=== PATIENT | male | born 1960 | race Caucasian/White ===

== ENCOUNTER 2016-12-22 17:58 | Inpatient (IN) | payer BC ==
[2016-12-22 19:35] VITALS: BMI 32.8
--- NOTE | 2016-12-22 20:23 | HP ---
CIWA Score - CIWA Score Nausea/Vomitin-Mild Nausea/No Vomiting Muscle Tremors: 4-Moderate,w/Arms Extend Anxiety: 4-Mod. Anxious/Guarded Agitation: 4-Moderately Restless Paroxysmal Sweats: 1-Minimal Palms Moist Orientation: 1-Uncertain about Date Tacttile Disturbances: 0-None Auditory Disturbances: 0-None Visual Disturbances: 0-None Headache: 0-None Present CIWA-Ar Total Score: 15 Admission ROS BHS - HPI Chief Complaint: withdrawal sx Allergies/Adverse Reactions: Allergies Allergy/AdvReac Type Severity Reaction Status Date / Time No Known Allergies Allergy Verified 11/18/15 18:11 History of Present Illness: 56 years old male with long history of alcohol cocaine nicotine dependence has gerd and depression is [facility] Exam Limitations: No Limitations - Ebola screening Have you traveled outside of the country in the last 21 days: No Have you had contact with anyone from an Ebola affected area: No Have you been sick,other than usual withdrawal symptoms: No Do you have a fever: No - Review of Systems Constitutional: Changes in sleep, Weight Stable EENT: reports: No Symptoms Reported, Dental Problems (denture upper) Respiratory: reports: SOB with Exertion, Productive cough (white) Cardiac: reports: No Symptoms Reported GI: reports: Nausea, Poor Fluid Intake, Indigestion, Abdominal cramping : reports: No Symptoms Reported Musculoskeletal: reports: Back Pain, Joint Pain (arthritis both knees and wrists ), Joint Swelling (both ankles = subsided after elevation), Muscle Pain, Neck Pain Integumentary: reports: No Symptoms Reported Neuro: reports: Tremors Endocrine: reports: No Symptoms Reported Hematology: reports: No Symptoms Reported Psychiatric: reports: Judgement Intact, Anxious, Depressed Other Systems: Reviewed and Negative Patient History - Patient Medical History Hx Anemia: No Hx Asthma: No Hx Chronic Obstructive Pulmonary Disease (COPD): No Hx Cancer: No Hx Cardiac Disorders: No Hx Congestive Heart Failure: No Hx Hypertension: No Hx Hypercholesterolemia: No Hx Pacemaker: No HX Cerebrovascular Accident: No Hx Seizures: No Hx Dementia: No Hx Diabetes: No Hx Gastrointestinal Disorders: Yes (GERD) Hx Liver Disease: No Hx Genitourinary Disorders: No Hx Sexually Transmitted Disorders: No Hx Renal Disease (ESRD): No Hx Thyroid Disease: No Hx Human Immunodeficiency Virus (HIV): No Hx Hepatitis C: Yes (treated) Hx Depression: Yes (ANXIETY) Hx Suicide Attempt: No Hx Bipolar Disorder: No Hx Schizophrenia: No - Patient Surgical History Past Surgical History: Yes Hx Neurologic Surgery: No Hx Cataract Extraction: No Hx Cardiac Surgery: No Hx Lung Surgery: No Hx Breast Surgery: No Hx Breast Biopsy: No Hx Abdominal Surgery: No Hx Appendectomy: No Hx Cholecystectomy: No Hx Genitourinary Surgery: No Hx Orthopedic Surgery: No Other Surgical History: EYE SX/LIPOMA REMOVED 2010/RETURN BACK Anesthesia Reaction: No - PPD History Previous Implant?: Yes Documented Results: Negative w/proof Implanted On Prior [facility] Admission?: Yes Date: 11/20/15 PPD to be Administered?: Yes - Smoking Cessation Smoking history: Current every day smoker Have you smoked in the past 12 months: Yes Aproximately how many cigarettes per day: 10 Hx Chewing Tobacco Use: No Initiated information on smoking cessation: Yes 'Breaking Loose' booklet given: 12/22/16 - Substance & Tx. History Hx Alcohol Use: Yes Hx Substance Use: Yes Substance Use Type: Alcohol, Cocaine Hx Substance Use Treatment: Yes (11/17-11/21/16 [facility] - Substances Abused Alcohol Route: Oral Frequency: Daily Amount used: 3 pints volka Age of first use: 16 Date of Last Use: 12/22/16 Family Disease History - Family Disease History Family Disease History: Diabetes: Grandparent, Other: Father (NEVER MEET), Mother () Admission Physical Exam S - Vital Signs Vital Signs: Vital Signs - 24 hr 12/22/16 19:31 Temperature 96.9 F L Pulse Rate 90 Respiratory 18 Rate Blood Pressure 117/77 - Physical General Appearance: Yes: Appropriately Dressed, Mild Distress, Alcohol on Breath , Obese, Tremorous, Irritable, Sweating, Anxious HEENTM: Yes: Hearing grossly Normal, Normal ENT Inspection, Normocephalic, Normal Voice Respiratory: Yes: Chest Non-Tender, Lungs Clear, Normal Breath Sounds, No Respiratory Distress, No Accessory Muscle Use Neck: Yes: Supple, Trachea in good position Breast: Yes: Breasts Symetrical Cardiology: Yes: Regular Rhythm, S1, S2, Tachycardia Abdominal: Yes: Normal Bowel Sounds, Non Tender, Soft Genitourinary: Yes: Within Normal Limits Back: Yes: Normal Inspection Musculoskeletal: Yes: full range of Motion, Gait Steady, Back pain, Muscle Pain (knees arthritis) Extremities: Yes: Normal Range of Motion, Non-Tender, Tremors, Swelling (both ankles) Neurological: Yes: Alert, Motor Strength 5/5, Normal Response, Depressed Affect Integumentary: Yes: Warm Lymphatic: Yes: Within Normal Limits - Diagnostic (1) Alcohol dependence with withdrawal Current Visit: Yes Status: Acute Qualifiers: Complication of substance-induced condition: uncomplicated Qualified Code(s): F10.230 - Alcohol dependence with withdrawal, uncomplicated (2) Arthritis Current Visit: Yes Status: Chronic (3) GERD (gastroesophageal reflux disease) Current Visit: Yes Status: Chronic Qualifiers: Esophagitis presence: without esophagitis Qualified Code(s): K21.9 - Gastro-esophageal reflux disease without esophagitis (4) Nicotine dependence Current Visit: Yes Status: Chronic Qualifiers: Nicotine product type: cigarettes Substance use status: in withdrawal Qualified Code(s): F17.213 - Nicotine dependence, cigarettes, with withdrawal (5) Anxiety and depression Current Visit: Yes Status: Suspected (6) Hepatitis C Current Visit: Yes Status: Resolved Qualifiers: Viral hepatitis chronicity: chronic Hepatic coma status: without hepatic coma Qualified Code(s): B18.2 - Chronic viral hepatitis C Cleared for Admission [facility] - Detox or Rehab [facility] Level of Care: Medically Managed Detox Regimen/Protocol: Librium [facility] Breath Alcohol Content Breath Alcohol Content: 0.138 Urine Drug Screen - Results Drug Screen Negative: No Urine Drug Screen Results: OLLIE-Cocaine
[2016-12-22] MEDS ORDERED: MAGNESIUM HYDROX 2400MG/30ML ORAL SUSPENSION 30 ML CUP PO PRN (20:31)
[2016-12-22] MEDS ORDERED: MAG HYDROX/AL HYDROX/SIMETH 30 ML UNIT-DOSE CUP PO PRN (20:31)
[2016-12-22] MEDS ORDERED: chlordiazePOXIDE HCL 25 MG CAPSULE PO ONE (20:31)
[2016-12-22] MEDS ORDERED: hydrOXYzine PAMOATE 50 MG CAPSULE (FP) PO PRN (20:31)
[2016-12-22] MEDS ORDERED: LOPERAMIDE HCL 2 MG CAPSULE PO PRN (20:31)
[2016-12-22] MEDS ORDERED: guaiFENesin/D-METHORPHAN HB 10 ML UNIT-DOSE CUPS PO PRN (20:31)
[2016-12-22] MEDS ORDERED: chlordiazePOXIDE HCL 25 MG CAPSULE PO PRN (20:31)
[2016-12-22] MEDS ORDERED: diphenhydrAMINE HCL 50 MG CAPSULE PO PRN (20:31)
[2016-12-22] MEDS ORDERED: MENTHOL/PHENOL 1 EACH UD MM PRN (20:31)
[2016-12-22] MEDS ORDERED: MAGNESIUM CITRATE 300 ML BOTTLE PO PRN (20:31)
[2016-12-22] MEDS ORDERED: P-EPHED 60MG/TRIPROLIDI 2.5MG TABLET PO PRN (20:31)
[2016-12-22] MEDS ORDERED: NICOTINE POLACRILEX 2 MG GUM BC PRN (20:31)
[2016-12-22] MEDS ORDERED: ALBUTEROL SO4 6.7 GM HFA INHALER IH PRN (20:38)
[2016-12-22] MEDS ORDERED: ALBUTEROL SO4 2.5/IPRATROPIUM 0.5 INH SOL 3 ML VIAL.NEB. NEB PRN (20:39)
[2016-12-22] MEDS: RANITIDINE HCL 150 MG TABLET (FP) PO SCH (21:35)
[2016-12-22] MEDS: THIAMINE HCL 100 MG TABLET (FP) PO SCH (21:35)
[2016-12-22] MEDS: NAPROXEN 500 MG TABLET (FP) PO PRN (22:24)
[2016-12-22] MEDS: BUDESONIDE/FORMETEROL FUMARATE 80/4.5 mcg INHALER IH SCH (22:33)
[2016-12-22] MEDS ORDERED: CYCLOBENZAPRINE HCL 10 MG TABLET (FP) PO ONE (23:27)
[2016-12-22] MEDS: chlordiazePOXIDE HCL 25 MG CAPSULE PO SCH (23:39)
[2016-12-23] MEDS: ACETAMINOPHEN 325 MG TABLET (FP) PO PRN (01:32)
[2016-12-23] MEDS: CYCLOBENZAPRINE HCL 10 MG TABLET (FP) PO PRN (01:46)
[2016-12-23] MEDS: chlordiazePOXIDE HCL 25 MG CAPSULE PO SCH ×4 (06:11→22:59)
--- NOTE | 2016-12-23 08:49 | CONSULT ---
[facility] Psychiatric Consult - Data Date of interview: 12/23/16 Admission source: [facility] Identifying data: Lincoln is 56 years old male with psychiatric hospitalization history, iontoxicated with: Alcohol and Nicotine Substance Abuse History: - Smoking Cessation. Smoking history: Current every day smoker. Have you smoked in the past 12 months: Yes. Aproximately how many cigarettes per day: 10. Hx Chewing Tobacco Use: No. Initiated information on smoking cessation: Yes. 'Breaking Loose' booklet given: 12/22/16. - Substance & Tx. History. Hx Alcohol Use: Yes. Hx Substance Use: Yes. Substance Use Type : Alcohol, Cocaine. Hx Substance Use Treatment: Yes (11/17-11/21/16 [facility]). - Substances Abused. Alcohol. Route: Oral. Frequency: Daily. Amount used: 3 pints volka. Age of first use: 16. Date of Last Use: 12/22/16 Medical History: Patint reprots history of COPD, Lower Extremities Edema, HepC+, Psychiatric History: Patient reports history of anxioety amd depression with recent psychiatric admission for safety on 2015 at [facility], reports taking prior to admission: Lamictal 25mg poqd. Gabapentine 400mg po bid. Vistaril; 50mg po qhs Physical/Sexual Abuse/Trauma History: Denies Additional Comment: Lamictal 25mg poqd. Gabapentine 400mg po bid. Vistaril; 50mg po qhs Mental Status Exam - Mental Status Exam Alert and Oriented to: Person Patient Appearance: Unkempt Patient Behavior: Cooperative Speech Pattern: Appropriate Voice Loudness: Mildly Soft/Quiet Thought Process: Goal Oriented Thought Disorder: Being Controlled Hallucinations: Denies Suicidal Ideation: Denies Insight/Judgement: Fair Sleep: Difficulty falling asleep Appetite: Weight gain Muscle strength/Tone: Mild Hypotonicity Gait/Station: Shuffling Additional Comments: Lamictal 25mg poqd. Gabapentine 400mg po bid. Vistaril; 50mg po qhs Psychiatric Findings - Problem List ([place] 1, 2,3) (1) Alcohol dependence with withdrawal Current Visit: Yes Status: Acute Qualifiers: Complication of substance-induced condition: uncomplicated Qualified Code(s): F10.230 - Alcohol dependence with withdrawal, uncomplicated (2) COPD (chronic obstructive pulmonary disease) Current Visit: Yes Status: Acute (3) Nicotine dependence Current Visit: Yes Status: Chronic Qualifiers: Nicotine product type: cigarettes Substance use status: in withdrawal Qualified Code(s): F17.213 - Nicotine dependence, cigarettes, with withdrawal (4) Anxiety and depression Current Visit: Yes Status: Suspected (5) Drug-induced mood disorder Current Visit: Yes Status: Acute - Initial Treatment Plan Initial Treatment Plan: Lamictal 25mg poqd. Gabapentine 400mg po bid. Vistaril ; 50mg po qhs
[2016-12-23 10:00] LABS: MCH 32.5 pg (25.7-33.7); MCHC 34.3 g/dl (32.0-35.9); MEAN CELL VOLUME 94.8 fl (80-96); PLATELET COUNT 285 K/MM3 (134-434); RDW 13.2 % (11.9-15.9); WHITE BLOOD COUNT 8.4 K/mm3 (4.0-10.0)
--- NOTE | 2016-12-23 10:04 | PN ---
BHS CIWA - CIWA Score Nausea/Vomitin Muscle Tremors: 4-Moderate,w/Arms Extend Anxiety: 4-Mod. Anxious/Guarded Agitation: 4-Moderately Restless Paroxysmal Sweats: 3 Orientation: 0-Oriented Tacttile Disturbances: 1-Very Mild Itch/Numbness Auditory Disturbances: 0-None Visual Disturbances: 0-None Headache: 1-Very Mild CIWA-Ar Total Score: 20 BHS Progress Note (SOAP) Subjective: nausea, sweats, interrupted sleep, anxiety, tremors Objective: 12/23/16 10:04 Vital Signs - 8 hr 12/23/16 12/23/16 03:30 05:51 Temperature 97.9 F Pulse Rate 78 Respiratory 18 18 Rate Blood Pressure 138/72 labs still pending Assessment: 12/23/16 10:04 withdrawal sx Plan: cont detox, check labs
--- NOTE | 2016-12-23 10:45 | EKG ---
Test Reason : Blood Pressure : / mmHG Vent. Rate : 084 BPM Atrial Rate : 084 BPM P-R Int : 142 ms QRS Dur : 098 ms QT Int : 408 ms P-R-T Axes : 071 064 057 degrees QTc Int : 482 ms NORMAL SINUS RHYTHM PROLONGED QT ABNORMAL ECG NO PREVIOUS ECGS AVAILABLE Confirmed by RAMIREZ FOX MD ([id number]) on 12/23/2016 10:44:57 AM Referred By: Confirmed By:RAMIREZ FOX MD
[2016-12-23] MEDS: PRENATAL VITAMINS W/ FOLIC ACID TABLET (FP) PO SCH (10:53)
[2016-12-23] MEDS: ONDANSETRON *ODT* 4 MG TABLET SL PRN (10:53)
[2016-12-23] MEDS: RANITIDINE HCL 150 MG TABLET (FP) PO SCH ×2 (10:54→22:59)
[2016-12-23] MEDS: SERTRALINE HCL 50 MG TABLET (FP) PO SCH (10:54)
[2016-12-23] MEDS: NAPROXEN 500 MG TABLET (FP) PO PRN (10:54)
[2016-12-23] MEDS: lamoTRIgine 25 MG TABLET PO SCH (10:57)
[2016-12-23] MEDS: GABAPENTIN 400 MG CAPSULE (FP) PO SCH ×2 (10:57→22:59)
[2016-12-23 11:02] LABS: ALK PHOS 104 U/L (45-117); ANION GAP 10 (8-16); BILIRUBIN,TOTAL 0.7 mg/dL (0.2-1.0); CO2 28 mmol/L (21-32); CREATININE 0.7 mg/dL (0.7-1.3); GLUCOSE,RANDOM 100 mg/dL (74-106); SGOT/AST 35 U/L (15-37); SGPT/ALT 45 U/L (12-78); TOT PROT 6.3 g/dl (6.4-8.2)
[2016-12-23] MEDS: NICOTINE 14 MG/24 HOURS TOPICAL PATCH TD SCH (13:57)
[2016-12-23] MEDS: BUDESONIDE/FORMETEROL FUMARATE 80/4.5 mcg INHALER IH SCH ×2 (13:57→23:06)
[2016-12-23] MEDS: THIAMINE HCL 100 MG TABLET (FP) PO SCH (23:00)
[2016-12-23] MEDS: hydrOXYzine PAMOATE 50 MG CAPSULE (FP) PO SCH (23:08)
[2016-12-24] MEDS: chlordiazePOXIDE HCL 25 MG CAPSULE PO SCH ×3 (05:49→18:20)
[2016-12-24] MEDS: CYCLOBENZAPRINE HCL 10 MG TABLET (FP) PO PRN ×3 (05:49→22:27)
[2016-12-24] MEDS: ACETAMINOPHEN 325 MG TABLET (FP) PO PRN (05:50)
[2016-12-24] MEDS ORDERED: FUROSEMIDE 40 MG TABLET (FP) PO ONE (12:30)
--- NOTE | 2016-12-24 12:37 | PN ---
S CIWA - CIWA Score Nausea/Vomitin-No Nausea/No Vomiting Muscle Tremors: 4-Moderate,w/Arms Extend Anxiety: 4-Mod. Anxious/Guarded Agitation: 4-Moderately Restless Paroxysmal Sweats: 3 Orientation: 0-Oriented Tacttile Disturbances: 0-None Auditory Disturbances: 0-None Visual Disturbances: 0-None Headache: 0-None Present CIWA-Ar Total Score: 15 BHS Progress Note (SOAP) Subjective: agitation anxiety sweats shakes swollen ankles interrupted sleep Objective: 12/24/16 12:36 Vital Signs Temperature 97.7 F 12/24/16 10:01 Pulse Rate 69 12/24/16 10:01 Respiratory Rate 18 12/24/16 10:01 Blood Pressure 123/60 12/24/16 10:01 O2 Sat by Pulse Oximetry (%) Laboratory Tests 12/23/16 12/23/16 12/23/16 07:00 07:00 07:00 WBC 8.4 RBC 4.37 Hgb 14.2 Hct 41.4 MCV 94.8 MCH 32.5 MCHC 34.3 RDW 13.2 D Plt Count 285 D MPV 8.0 Sodium 141 Potassium 3.5 Chloride 103 Carbon Dioxide 28 Anion Gap 10 BUN 12 Creatinine 0.7 Creat Clearance w eGFR > 60 Random Glucose 100 Calcium 9.0 Total Bilirubin 0.7 D AST 35 D ALT 45 D Alkaline Phosphatase 104 D Total Protein 6.3 L Albumin 3.0 L RPR Titer Nonreactive labs pending awake/alert lying in bed no acute distress Assessment: 12/24/16 12:36 withdrawal sx Plan: continue detox lasix 40mg x one ordered encouraged to keep legs elevation prn labs pending
[2016-12-24] MEDS: RANITIDINE HCL 150 MG TABLET (FP) PO SCH ×2 (12:41→22:28)
[2016-12-24] MEDS: ONDANSETRON *ODT* 4 MG TABLET SL PRN (12:41)
[2016-12-24] MEDS: GABAPENTIN 400 MG CAPSULE (FP) PO SCH ×2 (12:42→22:28)
[2016-12-24] MEDS: SERTRALINE HCL 50 MG TABLET (FP) PO SCH (12:42)
[2016-12-24] MEDS: lamoTRIgine 25 MG TABLET PO SCH (12:42)
[2016-12-24] MEDS: PRENATAL VITAMINS W/ FOLIC ACID TABLET (FP) PO SCH (12:42)
[2016-12-24] MEDS: NAPROXEN 500 MG TABLET (FP) PO PRN (12:42)
[2016-12-24] MEDS: NICOTINE 14 MG/24 HOURS TOPICAL PATCH TD SCH (12:44)
[2016-12-24] MEDS: BUDESONIDE/FORMETEROL FUMARATE 80/4.5 mcg INHALER IH SCH ×2 (12:44→22:27)
[2016-12-24 13:44] LABS: URINE APPEARANCE CLEAR; URINE BILIRUBIN NEGATIVE (NEGATIVE); URINE BLOOD 1+ (NEGATIVE); URINE COLOR LTYELLOW; URINE GLUCOSE (UA) NEGATIVE (NEGATIVE); URINE KETONE NEGATIVE (NEGATIVE); URINE LEUK ESTERASE NEGATIVE (NEGATIVE); URINE NITRITE NEGATIVE (NEGATIVE); URINE PROTEIN NEGATIVE (NEGATIVE); URINE UROBILINOGEN NEGATIVE mg/dL (0.2-1.0)
[2016-12-24 13:53] LABS: URINE MUCUS RARE; URINE RBC 3 /hpf (0-3); URINE WBC 1 /hpf (3-5)
[2016-12-24] MEDS: hydrOXYzine PAMOATE 50 MG CAPSULE (FP) PO SCH (22:27)
[2016-12-24] MEDS: chlordiazePOXIDE 5 MG CAPSULE PO SCH (22:27)
[2016-12-24] MEDS: THIAMINE HCL 100 MG TABLET (FP) PO SCH (22:28)
[2016-12-25] MEDS: ACETAMINOPHEN 325 MG TABLET (FP) PO PRN (06:46)
[2016-12-25] MEDS: CYCLOBENZAPRINE HCL 10 MG TABLET (FP) PO PRN (06:46)
[2016-12-25] MEDS: chlordiazePOXIDE 5 MG CAPSULE PO SCH ×3 (06:46→18:28)
--- NOTE | 2016-12-25 10:05 | PN ---
S Progress Note (SOAP) Subjective: ALERT,IRRITABLE,ANXIOUS,INTERRUPTED ,EDEMA BOTH ANKLE LEFT MORE THAN RIGHT BOTH KNEES USING CANE AT HOME FOR AMBULATION Objective: 12/25/16 10:04 Vital Signs Temperature 97.7 F 12/25/16 09:56 Pulse Rate 75 12/25/16 09:56 Respiratory Rate 18 12/25/16 09:56 Blood Pressure 142/96 12/25/16 09:56 O2 Sat by Pulse Oximetry (%) Assessment: 12/25/16 10:04 WITHDRAWAL SYMPTOM Plan: CONTINUE DETOX,LASIX 40 MGS PO TODAY,OBTAIN CANE FOR AMBULATION,DISCHARGE IN AM
[2016-12-25] MEDS: lamoTRIgine 25 MG TABLET PO SCH (10:44)
[2016-12-25] MEDS: RANITIDINE HCL 150 MG TABLET (FP) PO SCH ×3 (10:44→23:11)
[2016-12-25] MEDS: PRENATAL VITAMINS W/ FOLIC ACID TABLET (FP) PO SCH (10:44)
[2016-12-25] MEDS: SERTRALINE HCL 50 MG TABLET (FP) PO SCH (10:44)
[2016-12-25] MEDS: NICOTINE 14 MG/24 HOURS TOPICAL PATCH TD SCH (10:45)
[2016-12-25] MEDS: BUDESONIDE/FORMETEROL FUMARATE 80/4.5 mcg INHALER IH SCH ×2 (10:45→22:38)
[2016-12-25] MEDS: GABAPENTIN 400 MG CAPSULE (FP) PO SCH ×3 (10:45→23:14)
[2016-12-25] MEDS ORDERED: FUROSEMIDE 40 MG TABLET (FP) PO ONE (11:00)
[2016-12-25] MEDS: chlordiazePOXIDE HCL 10 MG CAPSULE PO SCH ×2 (22:38→23:12)
[2016-12-25] MEDS: hydrOXYzine PAMOATE 50 MG CAPSULE (FP) PO SCH ×2 (22:38→23:14)
[2016-12-25] MEDS: THIAMINE HCL 100 MG TABLET (FP) PO SCH (22:38)
[2016-12-26] MEDS: chlordiazePOXIDE HCL 10 MG CAPSULE PO SCH (05:41)
[2016-12-26 06:48] VITALS: TEMP 97.5
[2016-12-26 10:37] VITALS: BP 138/97; PULSE 79
--- NOTE | 2016-12-26 12:12 | DS ---
[facility] Detox Discharge Summary Admission Date: 12/22/16 Discharge Date: 12/26/16 - History Present History: Alcohol Dependence Pertinent Past History: COPD, GERD, Hep C - Physical Exam Results Vital Signs: Vital Signs Temperature 97.5 F L 12/26/16 10:00 Pulse Rate 79 12/26/16 10:00 Respiratory Rate 18 12/26/16 10:00 Blood Pressure 138/97 12/26/16 10:00 O2 Sat by Pulse Oximetry (%) Pertinent Admission Physical Exam Findings: withdrawal sx Laboratory Last Values WBC 8.4 K/mm3 (4.0-10.0) 12/23/16 07:00 RBC 4.37 M/mm3 (4.00-5.60) 12/23/16 07:00 Hgb 14.2 GM/dL (11.7-16.9) 12/23/16 07:00 Hct 41.4 % (35.4-49) 12/23/16 07:00 MCV 94.8 fl (80-96) 12/23/16 07:00 MCH 32.5 pg (25.7-33.7) 12/23/16 07:00 MCHC 34.3 g/dl (32.0-35.9) 12/23/16 07:00 RDW 13.2 % (11.9-15.9) D 12/23/16 07:00 Plt Count 285 K/MM3 (134-434) D 12/23/16 07:00 MPV 8.0 fl (7.5-11.1) 12/23/16 07:00 Sodium 141 mmol/L (136-145) 12/23/16 07:00 Potassium 3.5 mmol/L (3.5-5.1) 12/23/16 07:00 Chloride 103 mmol/L (98-107) 12/23/16 07:00 Carbon Dioxide 28 mmol/L (21-32) 12/23/16 07:00 Anion Gap 10 (8-16) 12/23/16 07:00 BUN 12 mg/dL (7-18) 12/23/16 07:00 Creatinine 0.7 mg/dL (0.7-1.3) 12/23/16 07:00 Creat Clearance w eGFR > 60 (>60) 12/23/16 07:00 Random Glucose 100 mg/dL (74-106) 12/23/16 07:00 Calcium 9.0 mg/dL (8.5-10.1) 12/23/16 07:00 Total Bilirubin 0.7 mg/dL (0.2-1.0) D 12/23/16 07:00 AST 35 U/L (15-37) D 12/23/16 07:00 ALT 45 U/L (12-78) D 12/23/16 07:00 Alkaline Phosphatase 104 U/L (45-117) D 12/23/16 07:00 Total Protein 6.3 g/dl (6.4-8.2) L 12/23/16 07:00 Albumin 3.0 g/dl (3.4-5.0) L 12/23/16 07:00 Urine Color Ltyellow 12/24/16 11:00 Urine Appearance Clear 12/24/16 11:00 Urine pH 6.0 (5.0-8.0) 12/24/16 11:00 Ur Specific [place] 1.015 (1.005-1.025) 12/24/16 11:00 Urine Protein Negative (NEGATIVE) 12/24/16 11:00 Urine Glucose (UA) Negative (NEGATIVE) 12/24/16 11:00 Urine Ketones Negative (NEGATIVE) 12/24/16 11:00 Urine Blood 1+ (NEGATIVE) H 12/24/16 11:00 Urine Nitrite Negative (NEGATIVE) 12/24/16 11:00 Urine Bilirubin Negative (NEGATIVE) 12/24/16 11:00 Urine Urobilinogen Negative mg/dL (0.2-1.0) 12/24/16 11:00 Ur Leukocyte Esterase Negative (NEGATIVE) 12/24/16 11:00 Urine RBC 3 /hpf (0-3) 12/24/16 11:00 Urine WBC 1 /hpf (3-5) 12/24/16 11:00 Urine Mucus Rare 12/24/16 11:00 RPR Titer Nonreactive (NONREACTIVE) 12/23/16 07:00 lab noted - Treatment Hospital Course: Detox Protocol Followed, Detoxed Safely, Responded well, Discharged Condition Good - Medication Discharge Medications: Ambulatory Orders Gabapentin [Neurontin -] 400 mg PO BID 11/18/15 Hydroxyzine Pamoate [Vistaril -] 50 mg PO HS 11/18/15 Lamotrigine [Lamictal -] 25 mg PO DAILY 11/18/15 Omeprazole [Prilosec] 20 mg PO HS 11/18/15 Cyclobenzaprine HCl [Flexeril -] 10 mg PO TID PRN #90 tablet 12/23/16 Diphenhydramine [Benadryl Capsule -] 50 mg PO HSMR1 PRN #30 cap 12/23/16 Lamotrigine [Lamictal -] 25 mg PO DAILY #30 tablet 12/23/16 Sertraline HCl [Zoloft -] 50 mg PO DAILY #30 tablet 12/23/16 - Diagnosis (1) COPD (chronic obstructive pulmonary disease) Status: Chronic Qualifiers: COPD type: chronic bronchitis Chronic bronchitis type: mixed simple and mucopurulent Qualified Code(s): J41.8 - Mixed simple and mucopurulent chronic bronchitis (2) Drug-induced mood disorder Status: Acute (3) Alcohol dependence with withdrawal Status: Acute Qualifiers: Complication of substance-induced condition: uncomplicated Qualified Code(s): F10.230 - Alcohol dependence with withdrawal, uncomplicated (4) GERD (gastroesophageal reflux disease) Status: Chronic Qualifiers: Esophagitis presence: without esophagitis Qualified Code(s): K21.9 - Gastro-esophageal reflux disease without esophagitis (5) Nicotine dependence Status: Acute Qualifiers: Nicotine product type: cigarettes Substance use status: in withdrawal Qualified Code(s): F17.213 - Nicotine dependence, cigarettes, with withdrawal (6) Anxiety and depression Status: Suspected - AMA Did Patient Leave Against Medical Advice: No
== END 2016-12-26 09:35 | disposition home or self-care (01) | DRG 775 ==
LOC: YASAS 17:58 → Y6N 20:44
PROVIDERS: ADMIT Internal Medicine Addiction Medicine; ATTEND Internal Medicine Addiction Medicine
PROC: HZ2ZZZZ Detoxification Services for Substance Abuse Treatment (ICD-10-PCS; principal; 2016-12-22)
DX: F10.230 Alcohol dependence with withdrawal, uncomplicated (principal); F17.213 Nicotine dependence, cigarettes, with withdrawal; F19.24 Other psychoactive substance dependence with psychoactive substance-induced mood disorder; F41.8 Other specified anxiety disorders; J41.8 Mixed simple and mucopurulent chronic bronchitis; K21.9 Gastro-esophageal reflux disease without esophagitis; M25.472 Effusion, left ankle; M25.471 Effusion, right ankle; B18.2 Chronic viral hepatitis C; Z68.32 Body mass index [BMI] 32.0-32.9, adult; R00.0 Tachycardia, unspecified; M19.90 Unspecified osteoarthritis, unspecified site
CPT/HCPCS: 36415; 80053; 81003; 81015; 85027; 86593; 93005; 93010